=== PATIENT | male | born 1980 | race African-American/Black ===

== ENCOUNTER 2017-10-23 12:56 | Emergency (ER) | payer OTHER ==
[~2017-10-23] VITALS: Ht 175.3 cm; Wt 137.9 kg
[2017-10-23] MEDS ORDERED: KEFLEX500 MG PO (14:45)
[2017-10-23 15:05] VITALS: BP 119/67
== END 2017-10-23 15:06 | disposition home or self-care (01) ==
LOC: EME 12:56
DX: L03.116 Cellulitis of left lower limb (principal); M79.89 Other specified soft tissue disorders; I10 Essential (primary) hypertension
CPT/HCPCS: 93971; 99281; 99284